=== PATIENT | male | born 1965 | race Caucasian/White ===

== ENCOUNTER → 2017-03-07 | Outpatient (CLI) | payer OTHER | LOC: COL.RAD 07:45 | DX: K59.09 Other constipation (principal) ==

== ENCOUNTER → 2017-03-12 | Outpatient (CLI) | payer OTHER | LOC: COL.RAD 07:59 | DX: K59.09 Other constipation (principal) ==

== ENCOUNTER → 2018-02-18 | Outpatient (CLI) | payer OTHER | LOC: COL.RAD 12:59 | DX: N20.0 Calculus of kidney (principal); M79.89 Other specified soft tissue disorders | CPT/HCPCS: Q9967 ==